=== PATIENT | male | born 1955 | race Caucasian/White ===

== ENCOUNTER 2024-12-24 11:56 | Inpatient (IN) ==
[2024-12-24] MEDS: 0.9 % SODIUM CHLORIDE 1,000 ML IV ONE ×3 (12:02→13:57)
[2024-12-24 12:38] LABS: Basophils # (Auto) 0.03 K/mcL (0.00-0.30); Basophils % (Auto) 0.1 % (0.0-2.0); Eosinophils # (Auto) 0 K/mcL (0.00-0.70); Eosinophils % (Auto) 0 % (0.0-7.0); Hematocrit 47.2 % (40.1-51.0); Hemoglobin 16.5 g/dL (13.7-17.5); Lymphocytes # (Auto) 0.83 K/mcL (1.50-4.80); Mean Cell Volume 89.9 fL (80.0-100.0); Mean Platelet Volume 11.4 fL (8.8-12.5); Monocytes # (Auto) 1.88 K/mcL (0.10-0.90); Monocytes % (Auto) 6.7 % (1.0-12.0); Neutrophils % (Auto) 89.8 % (38.0-78.0); Platelet Count 313 K/mcL (140-440); RBC 5.25 M/mcL (4.63-6.08); WBC 27.9 K/mcL (4.5-11.0)
[2024-12-24 12:52] LABS: Alcohol, Blood < 10.1 mg/dL; Alcohol,Blood < 0.010 gm/dL (<0.010)
[2024-12-24 12:58] LABS: Creatine Kinase 1127 U/L (24-195)
[2024-12-24 12:59] LABS: Thyroid Stimulating Hormone 1.55 uIU/mL (0.27-5.01)
[2024-12-24 13:16] LABS: Amphetamine Screen,Urine None detected; Barbiturate Screen,Urine None detected; Benzodiazepines Screen,Urine None detected; Cannabinoid Screen,Urine None detected; Cocaine Screen,Urine None detected; Fentanyl, Urine Screen None Detected; Opiate Screen,Urine None detected; Oxycodone, Urine Screen None detected; Phencyclidine Screen,Urine None detected
[2024-12-24 13:23] LABS: Free T4 (Free Thyroxine) 1.21 ng/dL (0.93-1.70)
[2024-12-24 13:31] LABS: ALT/SGPT 61 U/L (<40); AST/SGOT 72 U/L (<40); Albumin 4.2 gm/dL (3.2-5.2); Alkaline Phosphatase 104 U/L (39-117); Bilirubin,Total 1.3 mg/dL (0.1-1.0); Blood Urea Nitrogen 144 mg/dL (8-23); Calcium 9.4 mg/dL (8.6-10.4); Carbon Dioxide 21 mmol/L (22-30); Chloride 86 mmol/L (96-108); Globulin 4.4 gm/dL (2.2-3.7); Glomerular Filtration Rate 8; Glucose 146 mg/dL (70-105); Potassium 3.1 mmol/L (3.3-5.1); Sodium 133 mmol/L (133-145)
[2024-12-24 13:49] LABS: Appearance,Urine CLOUDY (Clear); Bacteria,Urine MANY /hpf (0); Bilirubin,Urine Negative (Negative); Color,Urine Brown; Glucose,Urine (UA) Negative (Negative); Ketones,Urine Negative (Negative); Leukocyte Esterase,Urine 500 /uL (Negative); Nitrate,Urine Negative (Negative); Protein,Urine 100 mg/dL (Negative); Urine Blood >=1.0 mg/dL (Negative); Urine RBC 124 /hpf (0-3); Urine Squamous Epithelial Cell 0 /hpf (0-4); Urine WBC > 182 /hpf (0-4); Urobilinogen,Urine Negative
[2024-12-24] MEDS: cefTRIAXone 1 GM VIAL IV ONE (14:04)
[2024-12-24] MEDS: AZITHROMYCIN 500 MG in 0.9 % SODIUM CHLORIDE 250 ML IV ONE (15:35)
[2024-12-24] MEDS: HYDROmorphone 0.5 MG/0.5 ML SYRINGE IV PRN (15:44)
[2024-12-24 15:55] LABS: Blood Urea Nitrogen 143 mg/dL (8-23); Calcium 8.2 mg/dL (8.6-10.4); Carbon Dioxide 21 mmol/L (22-30); Chloride 95 mmol/L (96-108); Glomerular Filtration Rate 9; Glucose 134 mg/dL (70-105); Sodium 136 mmol/L (133-145)
[2024-12-24] MEDS: LEVOFLOXACIN 750 MG/150 ML BAG IV ONE ×2 (16:46→16:58)
[2024-12-24] MEDS: LIDOCAINE 4% TOP PATCH TOPICAL ONE (16:47)
[2024-12-24] MEDS ORDERED: IPRATROPIUM/ALBUTEROL 3 ML AMPUL.NEB NEB PRN (18:05)
[2024-12-24] MEDS: POTASSIUM CHLORIDE 20 MEQ TABLET PO ONE ×2 (18:47→21:22)
[2024-12-24] MEDS: LACTATED RINGERS 1,000 ML IV SCH (18:48)
[2024-12-24 20:42] LABS: Blood Urea Nitrogen 134 mg/dL (8-23); Calcium 8.3 mg/dL (8.6-10.4); Carbon Dioxide 20 mmol/L (22-30); Chloride 96 mmol/L (96-108); Glomerular Filtration Rate 11; Glucose 152 mg/dL (70-105); Sodium 136 mmol/L (133-145)
[2024-12-24] MEDS: HEPARIN 5,000 UNIT/ML VIAL SQ SCH (22:12)
[2024-12-24] MEDS: POTASSIUM CHLORIDE 40 MEQ in DEXTROSE 5% IN WATER 500 ML IV ONE (22:12)
[2024-12-24] MEDS: 0.9 % SODIUM CHLORIDE 10 ML SYRINGE IV SCH (22:13)
[2024-12-24] MEDS: POTASSIUM CHLORIDE 20 MEQ/10 ML VIAL IV ONE (22:13)
[2024-12-25] MEDS: AMITRIPTYLINE 25 MG TABLET PO SCH (01:47)
[2024-12-25] MEDS: LACTULOSE 20 GM/30 ML ORAL.SOL PO PRN (02:25)
[2024-12-25 06:36] LABS: Phosphorous 4.8 mg/dL (2.5-4.5)
[2024-12-25 06:55] LABS: ALT/SGPT 44 U/L (<40); AST/SGOT 43 U/L (<40); Albumin/Globulin Ratio 0.9 (1.0-2.3); Alkaline Phosphatase 86 U/L (39-117); Bilirubin,Total 0.7 mg/dL (0.1-1.0); Blood Urea Nitrogen 121 mg/dL (8-23); Calcium 8.3 mg/dL (8.6-10.4); Carbon Dioxide 19 mmol/L (22-30); Chloride 98 mmol/L (96-108); Globulin 3.3 gm/dL (2.2-3.7); Glomerular Filtration Rate 12; Glucose 121 mg/dL (70-105); Potassium 2.9 mmol/L (3.3-5.1); Sodium 137 mmol/L (133-145)
[2024-12-25 07:17] LABS: Basophils # (Auto) 0 K/mcL (0.00-0.30); Basophils % (Auto) 0 % (0.0-2.0); Eosinophils # (Auto) 0 K/mcL (0.00-0.70); Eosinophils % (Auto) 0 % (0.0-7.0); Hematocrit 37.6 % (40.1-51.0); Hemoglobin 13.1 g/dL (13.7-17.5); Lymphocytes # (Auto) 0.99 K/mcL (1.50-4.80); Lymphocytes % (Auto) 4.8 % (15.5-49.0); Mean Corpuscular HGB Conc 34.8 g/dL (31.0-36.0); Mean Platelet Volume 11.8 fL (8.8-12.5); Monocytes # (Auto) 1.36 K/mcL (0.10-0.90); Monocytes % (Auto) 6.6 % (1.0-12.0); Neutrophils % (Auto) 88.1 % (38.0-78.0); Platelet Count 180 K/mcL (140-440); RBC 4.18 M/mcL (4.63-6.08); WBC 20.5 K/mcL (4.5-11.0)
[2024-12-25] MEDS: LACTATED RINGERS 1,000 ML IV SCH (07:27)
[2024-12-25] MEDS: POTASSIUM CHLORIDE 20 MEQ TABLET PO ONE ×2 (07:58→17:25)
[2024-12-25] MEDS: POTASSIUM CHLORIDE 40 MEQ in DEXTROSE 5% IN WATER 500 ML IV ONE (08:36)
[2024-12-25] MEDS: POTASSIUM CHLORIDE 10 MEQ/100 ML BAG IV SCH (08:44)
[2024-12-25 14:39] LABS: Blood Urea Nitrogen 111 mg/dL (8-23); Calcium 8.6 mg/dL (8.6-10.4); Carbon Dioxide 19 mmol/L (22-30); Chloride 103 mmol/L (96-108); Glomerular Filtration Rate 14; Glucose 125 mg/dL (70-105); Potassium 3.3 mmol/L (3.3-5.1); Sodium 139 mmol/L (133-145)
[2024-12-25] MEDS: ACETAMINOPHEN 325 MG TABLET PO PRN (21:09)
[2024-12-26 06:14] LABS: Basophils # (Auto) 0 K/mcL (0.00-0.30); Basophils % (Auto) 0 % (0.0-2.0); Eosinophils # (Auto) 0.03 K/mcL (0.00-0.70); Eosinophils % (Auto) 0.2 % (0.0-7.0); Hematocrit 36.3 % (40.1-51.0); Hemoglobin 12.6 g/dL (13.7-17.5); Lymphocytes # (Auto) 0.72 K/mcL (1.50-4.80); Lymphocytes % (Auto) 5.8 % (15.5-49.0); Mean Cell Volume 90.5 fL (80.0-100.0); Mean Corpuscular HGB Conc 34.7 g/dL (31.0-36.0); Mean Platelet Volume 12.1 fL (8.8-12.5); Monocytes # (Auto) 0.82 K/mcL (0.10-0.90); Monocytes % (Auto) 6.6 % (1.0-12.0); Platelet Count 170 K/mcL (140-440); RBC 4.01 M/mcL (4.63-6.08); Red Cell Distribution Width 12.2 % (11.5-14.5); WBC 12.4 K/mcL (4.5-11.0)
[2024-12-26 06:42] LABS: ALT/SGPT 39 U/L (<40); AST/SGOT 32 U/L (<40); Albumin/Globulin Ratio 0.9 (1.0-2.3); Alkaline Phosphatase 93 U/L (39-117); Bilirubin,Total 0.6 mg/dL (0.1-1.0); Blood Urea Nitrogen 87 mg/dL (8-23); Calcium 8.9 mg/dL (8.6-10.4); Carbon Dioxide 21 mmol/L (22-30); Chloride 106 mmol/L (96-108); Globulin 3.2 gm/dL (2.2-3.7); Glomerular Filtration Rate 19; Glucose 156 mg/dL (70-105); Potassium 3.2 mmol/L (3.3-5.1); Sodium 142 mmol/L (133-145)
[2024-12-26] MEDS: 0.45 % SODIUM CHLORIDE 1,000 ML IV SCH (07:25)
[2024-12-26] MEDS: POTASSIUM CHLORIDE 20 MEQ TABLET PO ONE (07:39)
[2024-12-26] MEDS: POTASSIUM CHLORIDE 20 MEQ in DEXTROSE 5% IN WATER 250 ML IV ONE (08:00)
[2024-12-26] MEDS ORDERED: LEVOFLOXACIN 750 MG/150 ML BAG IV SCH (09:00)
[2024-12-26] MEDS ORDERED: LEVOFLOXACIN 500 MG/100 ML BAG IV SCH (09:00)
[2024-12-26] MEDS: POTASSIUM CHLORIDE 10 MEQ/100 ML BAG IV SCH (09:51)
[2024-12-26] MEDS: LEVOFLOXACIN 750 MG/150 ML BAG IV SCH (10:54)
[2024-12-26] MEDS: ONDANSETRON 4 MG/2 ML VIAL IV PRN (18:38)
[2024-12-26] MEDS: PROCHLORPERAZINE 10 MG/2 ML VIAL IV PRN (19:11)
[2024-12-26 21:01] LABS: Blood Urea Nitrogen 68 mg/dL (8-23); Calcium 8.7 mg/dL (8.6-10.4); Carbon Dioxide 22 mmol/L (22-30); Chloride 104 mmol/L (96-108); Glomerular Filtration Rate 23; Glucose 141 mg/dL (70-105); Potassium 3.5 mmol/L (3.3-5.1); Sodium 139 mmol/L (133-145)
[2024-12-27 05:46] LABS: Basophils # (Auto) 0 K/mcL (0.00-0.30); Basophils % (Auto) 0 % (0.0-2.0); Eosinophils # (Auto) 0.05 K/mcL (0.00-0.70); Eosinophils % (Auto) 0.5 % (0.0-7.0); Hematocrit 37.2 % (40.1-51.0); Hemoglobin 12.5 g/dL (13.7-17.5); Lymphocytes # (Auto) 0.84 K/mcL (1.50-4.80); Lymphocytes % (Auto) 8.6 % (15.5-49.0); Mean Cell Volume 91.6 fL (80.0-100.0); Mean Corpuscular HGB Conc 33.6 g/dL (31.0-36.0); Mean Platelet Volume 11.7 fL (8.8-12.5); Monocytes # (Auto) 0.92 K/mcL (0.10-0.90); Monocytes % (Auto) 9.5 % (1.0-12.0); Neutrophils % (Auto) 80.9 % (38.0-78.0); Platelet Count 170 K/mcL (140-440); RBC 4.06 M/mcL (4.63-6.08); Red Cell Distribution Width 12.3 % (11.5-14.5); WBC 9.7 K/mcL (4.5-11.0)
[2024-12-27 06:21] LABS: ALT/SGPT 39 U/L (<40); AST/SGOT 31 U/L (<40); Albumin/Globulin Ratio 0.9 (1.0-2.3); Alkaline Phosphatase 97 U/L (39-117); Bilirubin,Total 0.6 mg/dL (0.1-1.0); Blood Urea Nitrogen 61 mg/dL (8-23); Calcium 8.6 mg/dL (8.6-10.4); Carbon Dioxide 21 mmol/L (22-30); Chloride 103 mmol/L (96-108); Globulin 3.5 gm/dL (2.2-3.7); Glomerular Filtration Rate 23; Glucose 119 mg/dL (70-105); Sodium 139 mmol/L (133-145)
[2024-12-27] MEDS: POTASSIUM CHLORIDE 20 MEQ TABLET PO ONE (07:55)
[2024-12-27] MEDS: POTASSIUM CHLORIDE 10 MEQ/100 ML BAG IV SCH (07:58)
[2024-12-27] MEDS: POTASSIUM CHLORIDE 20 MEQ in DEXTROSE 5% IN WATER 250 ML IV ONE (08:11)
[2024-12-28 06:48] LABS: Basophils # (Auto) 0.02 K/mcL (0.00-0.30); Basophils % (Auto) 0.2 % (0.0-2.0); Eosinophils # (Auto) 0.13 K/mcL (0.00-0.70); Eosinophils % (Auto) 1.4 % (0.0-7.0); Hematocrit 38.5 % (40.1-51.0); Hemoglobin 13.1 g/dL (13.7-17.5); Lymphocytes # (Auto) 1.14 K/mcL (1.50-4.80); Lymphocytes % (Auto) 12.3 % (15.5-49.0); Mean Cell Volume 91.7 fL (80.0-100.0); Mean Platelet Volume 11.5 fL (8.8-12.5); Monocytes # (Auto) 1.18 K/mcL (0.10-0.90); Monocytes % (Auto) 12.7 % (1.0-12.0); Neutrophils % (Auto) 72.2 % (38.0-78.0); Platelet Count 191 K/mcL (140-440); Red Cell Distribution Width 12.3 % (11.5-14.5); WBC 9.3 K/mcL (4.5-11.0)
[2024-12-28 07:16] LABS: ALT/SGPT 41 U/L (<40); AST/SGOT 36 U/L (<40); Albumin/Globulin Ratio 0.8 (1.0-2.3); Alkaline Phosphatase 98 U/L (39-117); Bilirubin,Total 0.5 mg/dL (0.1-1.0); Blood Urea Nitrogen 47 mg/dL (8-23); Calcium 8.4 mg/dL (8.6-10.4); Carbon Dioxide 22 mmol/L (22-30); Chloride 102 mmol/L (96-108); Globulin 3.6 gm/dL (2.2-3.7); Glomerular Filtration Rate 27; Glucose 119 mg/dL (70-105); Potassium 3.1 mmol/L (3.3-5.1); Sodium 139 mmol/L (133-145)
[2024-12-28] MEDS ORDERED: LEVOFLOXACIN 500 MG/100 ML BAG IV SCH (07:45)
[2024-12-28] MEDS: POTASSIUM CHLORIDE 20 MEQ in DEXTROSE 5% IN WATER 250 ML IV ONE (08:18)
[2024-12-28] MEDS: POTASSIUM CHLORIDE 10 MEQ/100 ML BAG IV SCH (08:24)
[2024-12-28] MEDS: POTASSIUM CHLORIDE 20 MEQ TABLET PO ONE (08:24)
[2024-12-28] MEDS: LEVOFLOXACIN 750 MG/150 ML BAG IV SCH (08:24)
[2024-12-28] MEDS: MAGNESIUM SULFATE 4 GM/100 ML BAG IV SCH (11:26)
[2024-12-28 17:42] LABS: Blood Urea Nitrogen 45 mg/dL (8-23); Calcium 8.6 mg/dL (8.6-10.4); Carbon Dioxide 23 mmol/L (22-30); Chloride 101 mmol/L (96-108); Glomerular Filtration Rate 27; Glucose 119 mg/dL (70-105); Potassium 3.6 mmol/L (3.3-5.1); Sodium 139 mmol/L (133-145)
[2024-12-28] MEDS: SENNOSIDES 1 TABLET PO PRN (20:32)
[2024-12-29 06:50] LABS: Basophils # (Auto) 0.03 K/mcL (0.00-0.30); Basophils % (Auto) 0.3 % (0.0-2.0); Eosinophils # (Auto) 0.19 K/mcL (0.00-0.70); Eosinophils % (Auto) 1.9 % (0.0-7.0); Hematocrit 40.4 % (40.1-51.0); Hemoglobin 13.9 g/dL (13.7-17.5); Lymphocytes # (Auto) 1.75 K/mcL (1.50-4.80); Lymphocytes % (Auto) 17.3 % (15.5-49.0); Mean Cell Volume 91.4 fL (80.0-100.0); Mean Corpuscular HGB Conc 34.4 g/dL (31.0-36.0); Monocytes # (Auto) 1.08 K/mcL (0.10-0.90); Monocytes % (Auto) 10.7 % (1.0-12.0); Neutrophils % (Auto) 68.6 % (38.0-78.0); Platelet Count 203 K/mcL (140-440); RBC 4.42 M/mcL (4.63-6.08); Red Cell Distribution Width 12.1 % (11.5-14.5); WBC 10.1 K/mcL (4.5-11.0)
[2024-12-29 07:04] LABS: ALT/SGPT 51 U/L (<40); AST/SGOT 44 U/L (<40); Albumin 3.3 gm/dL (3.2-5.2); Alkaline Phosphatase 104 U/L (39-117); Bilirubin,Total 0.5 mg/dL (0.1-1.0); Blood Urea Nitrogen 45 mg/dL (8-23); Calcium 8.8 mg/dL (8.6-10.4); Carbon Dioxide 27 mmol/L (22-30); Chloride 100 mmol/L (96-108); Globulin 3.4 gm/dL (2.2-3.7); Glomerular Filtration Rate 25; Glucose 107 mg/dL (70-105); Potassium 3.3 mmol/L (3.3-5.1); Sodium 140 mmol/L (133-145)
[2024-12-29] MEDS: LACTATED RINGERS 1,000 ML IV SCH ×2 (10:57→11:00)
[2024-12-29] MEDS: LIDOCAINE 4% TOP PATCH TOPICAL SCH (16:28)
[2024-12-29 18:27] LABS: Blood Urea Nitrogen 43 mg/dL (8-23); Calcium 8.7 mg/dL (8.6-10.4); Carbon Dioxide 25 mmol/L (22-30); Chloride 100 mmol/L (96-108); Glomerular Filtration Rate 30; Glucose 133 mg/dL (70-105); Potassium 3.3 mmol/L (3.3-5.1); Sodium 139 mmol/L (133-145)
[2024-12-29] MEDS: POTASSIUM CHLORIDE 20 MEQ TABLET PO ONE (19:34)
[2024-12-30 06:36] LABS: ALT/SGPT 50 U/L (<40); AST/SGOT 42 U/L (<40); Albumin 3.2 gm/dL (3.2-5.2); Albumin/Globulin Ratio 0.9 (1.0-2.3); Alkaline Phosphatase 104 U/L (39-117); Basophils # (Auto) 0.05 K/mcL (0.00-0.30); Basophils % (Auto) 0.5 % (0.0-2.0); Bilirubin,Direct 0.3 mg/dL (<0.3); Bilirubin,Total 0.5 mg/dL (0.1-1.0); Blood Urea Nitrogen 42 mg/dL (8-23); Calcium 8.8 mg/dL (8.6-10.4); Carbon Dioxide 28 mmol/L (22-30); Chloride 102 mmol/L (96-108); Eosinophils # (Auto) 0.18 K/mcL (0.00-0.70); Eosinophils % (Auto) 1.7 % (0.0-7.0); Globulin 3.5 gm/dL (2.2-3.7); Glomerular Filtration Rate 28; Glucose 103 mg/dL (70-105); Hematocrit 38.7 % (40.1-51.0); Hemoglobin 13.1 g/dL (13.7-17.5); Lactate Dehydrogenase 256 U/L (135-225); Lymphocytes # (Auto) 2.44 K/mcL (1.50-4.80); Lymphocytes % (Auto) 23.3 % (15.5-49.0); Mean Cell Volume 90.8 fL (80.0-100.0); Mean Corpuscular HGB Conc 33.9 g/dL (31.0-36.0); Mean Platelet Volume 10.9 fL (8.8-12.5); Monocytes # (Auto) 0.87 K/mcL (0.10-0.90); Monocytes % (Auto) 8.3 % (1.0-12.0); Neutrophils % (Auto) 65.1 % (38.0-78.0); Platelet Count 212 K/mcL (140-440); Potassium 3.4 mmol/L (3.3-5.1); RBC 4.26 M/mcL (4.63-6.08); Red Cell Distribution Width 12.1 % (11.5-14.5); Sodium 141 mmol/L (133-145); Triglycerides 204 mg/dL (<150); Uric Acid 6.2 mg/dL (2.5-8.0); WBC 10.5 K/mcL (4.5-11.0)
[2024-12-30] MEDS: LEVOFLOXACIN 750 MG TABLET PO SCH (08:56)
[2024-12-30] MEDS: POTASSIUM CHLORIDE 20 MEQ TABLET PO ONE (16:13)
[2024-12-30 17:58] LABS: Potassium,Urine Random 14.4 mmol/L
[2024-12-31 06:31] LABS: Basophils # (Auto) 0.06 K/mcL (0.00-0.30); Basophils % (Auto) 0.5 % (0.0-2.0); Eosinophils # (Auto) 0.18 K/mcL (0.00-0.70); Eosinophils % (Auto) 1.5 % (0.0-7.0); Hematocrit 43.6 % (40.1-51.0); Hemoglobin 14.7 g/dL (13.7-17.5); Lymphocytes % (Auto) 25.5 % (15.5-49.0); Mean Corpuscular HGB Conc 33.7 g/dL (31.0-36.0); Mean Platelet Volume 10.6 fL (8.8-12.5); Monocytes # (Auto) 0.66 K/mcL (0.10-0.90); Monocytes % (Auto) 5.6 % (1.0-12.0); Neutrophils % (Auto) 65.5 % (38.0-78.0); Platelet Count 237 K/mcL (140-440); RBC 4.74 M/mcL (4.63-6.08); Red Cell Distribution Width 12.2 % (11.5-14.5); WBC 11.8 K/mcL (4.5-11.0)
[2024-12-31 06:35] LABS: ALT/SGPT 54 U/L (<40); AST/SGOT 47 U/L (<40); Albumin 3.6 gm/dL (3.2-5.2); Albumin/Globulin Ratio 0.9 (1.0-2.3); Alkaline Phosphatase 116 U/L (39-117); Bilirubin,Direct 0.2 mg/dL (<0.3); Bilirubin,Total 0.5 mg/dL (0.1-1.0); Blood Urea Nitrogen 39 mg/dL (8-23); Calcium 9.1 mg/dL (8.6-10.4); Carbon Dioxide 28 mmol/L (22-30); Chloride 101 mmol/L (96-108); Globulin 3.9 gm/dL (2.2-3.7); Glomerular Filtration Rate 30; Glucose 117 mg/dL (70-105); Lactate Dehydrogenase 209 U/L (135-225); Phosphorous 3.1 mg/dL (2.5-4.5); Potassium 3.8 mmol/L (3.3-5.1); Sodium 141 mmol/L (133-145); Triglycerides 211 mg/dL (<150); Uric Acid 6.3 mg/dL (2.5-8.0)
[2025-01-01 10:23] LABS: ALT/SGPT 71 U/L (<40); AST/SGOT 61 U/L (<40); Albumin 3.6 gm/dL (3.2-5.2); Albumin/Globulin Ratio 0.9 (1.0-2.3); Alkaline Phosphatase 119 U/L (39-117); Bilirubin,Direct 0.3 mg/dL (<0.3); Bilirubin,Total 0.7 mg/dL (0.1-1.0); Blood Urea Nitrogen 41 mg/dL (8-23); Calcium 9.1 mg/dL (8.6-10.4); Carbon Dioxide 26 mmol/L (22-30); Chloride 97 mmol/L (96-108); Globulin 3.8 gm/dL (2.2-3.7); Glomerular Filtration Rate 30; Glucose 183 mg/dL (70-105); Lactate Dehydrogenase 184 U/L (135-225); Phosphorous 3.1 mg/dL (2.5-4.5); Potassium 3.7 mmol/L (3.3-5.1); Sodium 137 mmol/L (133-145); Triglycerides 169 mg/dL (<150); Uric Acid 7.6 mg/dL (2.5-8.0)
[2025-01-01 11:07] LABS: Basophils # (Auto) 0.07 K/mcL (0.00-0.30); Basophils % (Auto) 0.6 % (0.0-2.0); Eosinophils # (Auto) 0.09 K/mcL (0.00-0.70); Eosinophils % (Auto) 0.8 % (0.0-7.0); Hematocrit 44.1 % (40.1-51.0); Hemoglobin 14.9 g/dL (13.7-17.5); Lymphocytes # (Auto) 2.71 K/mcL (1.50-4.80); Lymphocytes % (Auto) 24.9 % (15.5-49.0); Mean Cell Volume 91.7 fL (80.0-100.0); Mean Corpuscular HGB Conc 33.8 g/dL (31.0-36.0); Mean Platelet Volume 10.8 fL (8.8-12.5); Monocytes # (Auto) 0.44 K/mcL (0.10-0.90); Neutrophils % (Auto) 68.8 % (38.0-78.0); Platelet Count 284 K/mcL (140-440); RBC 4.81 M/mcL (4.63-6.08); Red Cell Distribution Width 12.2 % (11.5-14.5); WBC 10.9 K/mcL (4.5-11.0)
[2025-01-01] MEDS: MAGNESIUM SULFATE 2 GM/50 ML BAG IV SCH (11:29)
[2025-01-01] MEDS: 0.9 % SODIUM CHLORIDE 1,000 ML IV ONE (13:17)
[2025-01-01] MEDS: 0.9 % SODIUM CHLORIDE 500 ML IV ONE (17:49)
[2025-01-01] MEDS: TAMSULOSIN 0.4 MG CAPSULE PO SCH (21:24)
[2025-01-01] MEDS: AMITRIPTYLINE 25 MG TABLET PO SCH (21:25)
[2025-01-02 07:16] LABS: ALT/SGPT 62 U/L (<40); AST/SGOT 55 U/L (<40); Albumin 3.3 gm/dL (3.2-5.2); Albumin/Globulin Ratio 0.8 (1.0-2.3); Alkaline Phosphatase 115 U/L (39-117); Bilirubin,Direct < 0.2 mg/dL (0-0.3); Bilirubin,Total 0.7 mg/dL (0.1-1.0); Blood Urea Nitrogen 41 mg/dL (8-23); Calcium 9.2 mg/dL (8.6-10.4); Carbon Dioxide 19 mmol/L (22-30); Chloride 102 mmol/L (96-108); Globulin 4.1 gm/dL (2.2-3.7); Glomerular Filtration Rate 31; Glucose 104 mg/dL (70-105); Lactate Dehydrogenase 299 U/L (135-225); Phosphorous 3.4 mg/dL (2.5-4.5); Potassium 4.1 mmol/L (3.3-5.1); Sodium 138 mmol/L (133-145); Triglycerides 181 mg/dL (<150); Uric Acid 7.6 mg/dL (2.5-8.0)
[2025-01-02] MEDS: SODIUM BICARBONATE 650 MG TABLET PO SCH (08:36)
[2025-01-02 16:02] LABS: ALT/SGPT 65 U/L (<40); AST/SGOT 51 U/L (<40); Albumin 3.7 gm/dL (3.2-5.2); Albumin/Globulin Ratio 0.9 (1.0-2.3); Alkaline Phosphatase 123 U/L (39-117); Bilirubin,Direct 0.2 mg/dL (<0.3); Bilirubin,Total 0.5 mg/dL (0.1-1.0); Blood Urea Nitrogen 43 mg/dL (8-23); Calcium 9.3 mg/dL (8.6-10.4); Carbon Dioxide 21 mmol/L (22-30); Chloride 99 mmol/L (96-108); Glomerular Filtration Rate 30; Glucose 137 mg/dL (70-105); Lactate Dehydrogenase 174 U/L (135-225); Phosphorous 2.8 mg/dL (2.5-4.5); Potassium 3.8 mmol/L (3.3-5.1); Sodium 138 mmol/L (133-145); Triglycerides 242 mg/dL (<150); Uric Acid 7.9 mg/dL (2.5-8.0)
[2025-01-02 18:52] LABS: Prolactin 14.8 ng/mL (4.0-15.2)
[2025-01-02] MEDS: levETIRAcetam 1,000 MG in 0.9 % SODIUM CHLORIDE 100 ML IV SCH (21:26)
[2025-01-02] MEDS: LORazepam 2 MG/ML VIAL IV PRN (21:43)
[2025-01-03] MEDS: levETIRAcetam 500 MG TABLET PO SCH (09:34)
[2025-01-03 15:55] VITALS: TEMP 97.8; O2SAT 99
== END 2025-01-03 16:25 | disposition home or self-care (01) | DRG 871 ==
LOC: ED 11:56 → ICU 18:00 → MEDSUR 12-28 22:36 → ICU 01-02 17:51
PROVIDERS: ADMIT Student in an Organized Health Care Education/Training Program; ATTEND Internal Medicine

== ENCOUNTER 2025-03-14 13:32 | Inpatient (IN) ==
[2025-03-14] MEDS: 0.9 % SODIUM CHLORIDE 1,000 ML IV ONE ×2 (14:08→15:51)
[2025-03-14 14:29] LABS: Basophils # (Auto) 0.01 K/mcL (0.00-0.30); Basophils % (Auto) 0.1 % (0.0-2.0); Eosinophils # (Auto) 0 K/mcL (0.00-0.70); Eosinophils % (Auto) 0 % (0.0-7.0); Hematocrit 35.3 % (40.1-51.0); Hemoglobin 11.3 g/dL (13.7-17.5); Lymphocytes # (Auto) 1.71 K/mcL (1.50-4.80); Lymphocytes % (Auto) 9.5 % (15.5-49.0); Mean Cell Volume 95.7 fL (80.0-100.0); Mean Platelet Volume 11.3 fL (8.8-12.5); Monocytes # (Auto) 0.87 K/mcL (0.10-0.90); Monocytes % (Auto) 4.8 % (1.0-12.0); Neutrophils % (Auto) 84.9 % (38.0-78.0); Platelet Count 555 K/mcL (140-440); RBC 3.69 M/mcL (4.63-6.08); Red Cell Distribution Width 14.7 % (11.5-14.5)
[2025-03-14 14:50] LABS: Alcohol, Blood < 10.1 mg/dL; Alcohol,Blood < 0.010 gm/dL (<0.010)
[2025-03-14 14:53] LABS: Creatine Kinase 1533 U/L (24-195); Thyroid Stimulating Hormone 0.95 uIU/mL (0.27-5.01)
[2025-03-14 15:12] LABS: ALT/SGPT 51 U/L (<40); AST/SGOT 100 U/L (<40); Albumin 3.4 gm/dL (3.2-5.2); Albumin/Globulin Ratio 0.7 (1.0-2.3); Alkaline Phosphatase 79 U/L (39-117); Bilirubin,Total 0.5 mg/dL (0.1-1.0); Blood Urea Nitrogen 131 mg/dL (8-23); Calcium 9.5 mg/dL (8.6-10.4); Carbon Dioxide 18 mmol/L (22-30); Chloride 110 mmol/L (96-108); Globulin 4.6 gm/dL (2.2-3.7); Glomerular Filtration Rate 11; Glucose 177 mg/dL (70-105); Potassium 3.6 mmol/L (3.3-5.1); Sodium 152 mmol/L (133-145)
[2025-03-14 16:27] LABS: Acetaminophen < 5.0 ug/mL; Salicylate < 0.5 mg/dL
[2025-03-14] MEDS: PROPOFOL 200 MG/20 ML VIAL IV ONE (16:59)
[2025-03-14] MEDS: DEXTROSE 5% IN WATER 1,000 ML IV SCH (17:34)
[2025-03-14 19:07] LABS: Appearance,Urine CLEAR (Clear); Bilirubin,Urine Negative (Negative); Color,Urine YELLOW; Glucose,Urine (UA) Negative (Negative); Ketones,Urine Negative (Negative); Leukocyte Esterase,Urine Negative /uL (Negative); Mucus,Urine FEW /hpf; Nitrate,Urine Negative (Negative); Protein,Urine Negative (Negative); Specific Gravity,Urine 1.011 (1.000-1.035); Urine RBC 36 /hpf (0-3); Urine Squamous Epithelial Cell 0 /hpf (0-4); Urine WBC 3 /hpf (0-4); Urobilinogen,Urine Negative
[2025-03-14 19:16] LABS: Amphetamine Screen,Urine None detected; Barbiturate Screen,Urine None detected; Benzodiazepines Screen,Urine None detected; Cannabinoid Screen,Urine None detected; Cocaine Screen,Urine None detected; Fentanyl, Urine Screen None Detected; Opiate Screen,Urine None detected; Oxycodone, Urine Screen None detected; Phencyclidine Screen,Urine None detected
[2025-03-14] MEDS ORDERED: ONDANSETRON 4 MG/2 ML VIAL IV PRN (19:32)
[2025-03-14] MEDS ORDERED: LACTULOSE 20 GM/30 ML ORAL.SOL PO PRN (19:32)
[2025-03-14] MEDS: cefTRIAXone 1 GM VIAL IV ONE (20:24)
[2025-03-14] MEDS: DEXTROSE 5% IN WATER 500 ML IV SCH (20:24)
[2025-03-14] MEDS: 0.9 % SODIUM CHLORIDE 10 ML SYRINGE IV SCH (20:25)
[2025-03-14 21:12] LABS: Albumin 3.5 gm/dL (3.2-5.2); Blood Urea Nitrogen 119 mg/dL (8-23); Calcium 9.3 mg/dL (8.6-10.4); Carbon Dioxide 20 mmol/L (22-30); Chloride 115 mmol/L (96-108); Glomerular Filtration Rate 13; Glucose 112 mg/dL (70-105); Phosphorous 5.1 mg/dL (2.5-4.5); Potassium 2.9 mmol/L (3.3-5.1); Sodium 154 mmol/L (133-145)
[2025-03-14] MEDS: SODIUM BICARBONATE 50 MEQ/50 ML VIAL ONE (21:18)
[2025-03-14] MEDS: hydrOXYzine 25 MG TABLET PO PRN (21:18)
[2025-03-14] MEDS: HALOPERIDOL LACTATE 5 MG/ML VIAL IV PRN (22:08)
[2025-03-14] MEDS: POTASSIUM CHLORIDE 20 MEQ TABLET PO ONE (22:08)
[2025-03-14] MEDS: DEXTROSE 5% IV SCH (22:43)
[2025-03-14] MEDS: WATER IV SCH (22:43)
[2025-03-14] MEDS: SODIUM BICARBONATE IV SCH (22:43)
[2025-03-15] MEDS: ACETAMINOPHEN 325 MG TABLET PO PRN (00:59)
[2025-03-15] MEDS: HEPARIN 5,000 UNIT/ML VIAL SQ SCH (03:34)
[2025-03-15] MEDS: SODIUM BICARBONATE 50 MEQ/50 ML VIAL ONE (04:22)
[2025-03-15 07:58] LABS: Basophils # (Auto) 0.01 K/mcL (0.00-0.30); Basophils % (Auto) 0.1 % (0.0-2.0); Eosinophils # (Auto) 0.12 K/mcL (0.00-0.70); Eosinophils % (Auto) 0.8 % (0.0-7.0); Hematocrit 31.8 % (40.1-51.0); Lymphocytes # (Auto) 2.84 K/mcL (1.50-4.80); Mean Cell Volume 96.7 fL (80.0-100.0); Mean Corpuscular HGB Conc 31.4 g/dL (31.0-36.0); Mean Platelet Volume 10.7 fL (8.8-12.5); Monocytes # (Auto) 0.75 K/mcL (0.10-0.90); Neutrophils % (Auto) 74.5 % (38.0-78.0); Platelet Count 456 K/mcL (140-440); RBC 3.29 M/mcL (4.63-6.08); Red Cell Distribution Width 14.4 % (11.5-14.5)
[2025-03-15 08:43] LABS: Creatine Kinase 591 U/L (24-195)
[2025-03-15 08:52] LABS: ALT/SGPT 41 U/L (<40); AST/SGOT 67 U/L (<40); Albumin 2.9 gm/dL (3.2-5.2); Albumin/Globulin Ratio 0.8 (1.0-2.3); Alkaline Phosphatase 67 U/L (39-117); Bilirubin,Direct < 0.2 mg/dL (0-0.3); Bilirubin,Total 0.3 mg/dL (0.1-1.0); Blood Urea Nitrogen 104 mg/dL (8-23); Calcium 8.9 mg/dL (8.6-10.4); Carbon Dioxide 23 mmol/L (22-30); Chloride 111 mmol/L (96-108); Globulin 3.7 gm/dL (2.2-3.7); Glomerular Filtration Rate 15; Glucose 160 mg/dL (70-105); Lactate Dehydrogenase 248 U/L (135-225); Phosphorous 4.4 mg/dL (2.5-4.5); Potassium 3.2 mmol/L (3.3-5.1); Sodium 148 mmol/L (133-145); Triglycerides 187 mg/dL (<150); Uric Acid 9.1 mg/dL (2.5-8.0)
[2025-03-15] MEDS: POTASSIUM CHLORIDE 20 MEQ TABLET PO SCH (09:09)
[2025-03-15] MEDS: TERAZOSIN 1 MG CAPSULE PO SCH (09:55)
[2025-03-15] MEDS: DEXTROSE 5% IN WATER 1,000 ML IV SCH (11:49)
[2025-03-15 18:46] LABS: Albumin 2.7 gm/dL (3.2-5.2); Blood Urea Nitrogen 95 mg/dL (8-23); Calcium 8.5 mg/dL (8.6-10.4); Carbon Dioxide 23 mmol/L (22-30); Chloride 107 mmol/L (96-108); Glomerular Filtration Rate 17; Glucose 169 mg/dL (70-105); Phosphorous 2.9 mg/dL (2.5-4.5); Potassium 3.7 mmol/L (3.3-5.1); Sodium 145 mmol/L (133-145)
[2025-03-16 06:53] LABS: Basophils # (Auto) 0.01 K/mcL (0.00-0.30); Basophils % (Auto) 0.1 % (0.0-2.0); Eosinophils # (Auto) 0.16 K/mcL (0.00-0.70); Eosinophils % (Auto) 1.5 % (0.0-7.0); Hematocrit 30.6 % (40.1-51.0); Hemoglobin 9.8 g/dL (13.7-17.5); Lymphocytes # (Auto) 2.39 K/mcL (1.50-4.80); Mean Cell Volume 95.9 fL (80.0-100.0); Mean Platelet Volume 10.7 fL (8.8-12.5); Monocytes # (Auto) 0.51 K/mcL (0.10-0.90); Monocytes % (Auto) 4.9 % (1.0-12.0); Neutrophils % (Auto) 69.4 % (38.0-78.0); Platelet Count 373 K/mcL (140-440); RBC 3.19 M/mcL (4.63-6.08); Red Cell Distribution Width 14.3 % (11.5-14.5); WBC 10.4 K/mcL (4.5-11.0)
[2025-03-16 06:56] LABS: Creatine Kinase 261 U/L (24-195)
[2025-03-16 06:57] LABS: ALT/SGPT 37 U/L (<40); AST/SGOT 45 U/L (<40); Albumin 2.9 gm/dL (3.2-5.2); Albumin/Globulin Ratio 0.8 (1.0-2.3); Alkaline Phosphatase 64 U/L (39-117); Bilirubin,Direct < 0.2 mg/dL (0-0.3); Bilirubin,Total 0.3 mg/dL (0.1-1.0); Blood Urea Nitrogen 81 mg/dL (8-23); Calcium 8.8 mg/dL (8.6-10.4); Carbon Dioxide 27 mmol/L (22-30); Chloride 109 mmol/L (96-108); Globulin 3.7 gm/dL (2.2-3.7); Glomerular Filtration Rate 20; Glucose 149 mg/dL (70-105); Lactate Dehydrogenase 204 U/L (135-225); Phosphorous 2.8 mg/dL (2.5-4.5); Potassium 3.5 mmol/L (3.3-5.1); Sodium 147 mmol/L (133-145); Triglycerides 155 mg/dL (<150); Uric Acid 8.4 mg/dL (2.5-8.0)
[2025-03-16] MEDS: ALLOPURINOL 100 MG TABLET PO SCH (10:56)
[2025-03-16] MEDS: OLANZapine 5 MG TABLET PO PRN (14:44)
[2025-03-16 17:00] LABS: Blood Urea Nitrogen 71 mg/dL (8-23); Calcium 8.5 mg/dL (8.6-10.4); Carbon Dioxide 25 mmol/L (22-30); Chloride 106 mmol/L (96-108); Glomerular Filtration Rate 23; Glucose 157 mg/dL (70-105); Phosphorous 2.4 mg/dL (2.5-4.5); Potassium 3.7 mmol/L (3.3-5.1); Sodium 143 mmol/L (133-145)
[2025-03-17 05:56] LABS: Basophils # (Auto) 0.01 K/mcL (0.00-0.30); Basophils % (Auto) 0.1 % (0.0-2.0); Eosinophils # (Auto) 0.33 K/mcL (0.00-0.70); Eosinophils % (Auto) 3.2 % (0.0-7.0); Hematocrit 33.8 % (40.1-51.0); Hemoglobin 10.5 g/dL (13.7-17.5); Lymphocytes # (Auto) 2.26 K/mcL (1.50-4.80); Lymphocytes % (Auto) 22.2 % (15.5-49.0); Mean Cell Volume 98.8 fL (80.0-100.0); Mean Corpuscular HGB Conc 31.1 g/dL (31.0-36.0); Mean Platelet Volume 10.6 fL (8.8-12.5); Monocytes # (Auto) 0.58 K/mcL (0.10-0.90); Monocytes % (Auto) 5.7 % (1.0-12.0); Neutrophils % (Auto) 67.3 % (38.0-78.0); Platelet Count 367 K/mcL (140-440); RBC 3.42 M/mcL (4.63-6.08); Red Cell Distribution Width 14.3 % (11.5-14.5); WBC 10.2 K/mcL (4.5-11.0)
[2025-03-17 06:14] LABS: ALT/SGPT 35 U/L (<40); AST/SGOT 36 U/L (<40); Albumin/Globulin Ratio 0.7 (1.0-2.3); Alkaline Phosphatase 75 U/L (39-117); Bilirubin,Direct < 0.2 mg/dL (0-0.3); Bilirubin,Total 0.4 mg/dL (0.1-1.0); Blood Urea Nitrogen 61 mg/dL (8-23); Calcium 9.1 mg/dL (8.6-10.4); Carbon Dioxide 30 mmol/L (22-30); Chloride 108 mmol/L (96-108); Creatine Kinase 171 U/L (24-195); Globulin 4.2 gm/dL (2.2-3.7); Glomerular Filtration Rate 27; Glucose 155 mg/dL (70-105); Lactate Dehydrogenase 255 U/L (135-225); Phosphorous 2.6 mg/dL (2.5-4.5); Potassium 3.8 mmol/L (3.3-5.1); Sodium 147 mmol/L (133-145); Triglycerides 161 mg/dL (<150); Uric Acid 7.1 mg/dL (2.5-8.0)
[2025-03-17] MEDS: TERAZOSIN 5 MG CAPSULE PO SCH (09:38)
[2025-03-17 09:54] LABS: Hemoglobin A1C 5.6 % Hgb (4.0-6.0)
[2025-03-17] MEDS: traMADol 50 MG TABLET PO PRN (13:44)
[2025-03-17] MEDS: SENNOSIDES 1 TABLET PO PRN (20:03)
[2025-03-18 06:11] LABS: ALT/SGPT 28 U/L (<40); AST/SGOT 28 U/L (<40); Albumin 2.8 gm/dL (3.2-5.2); Albumin/Globulin Ratio 0.8 (1.0-2.3); Alkaline Phosphatase 65 U/L (39-117); Bilirubin,Direct < 0.2 mg/dL (0-0.3); Bilirubin,Total 0.3 mg/dL (0.1-1.0); Blood Urea Nitrogen 47 mg/dL (8-23); Calcium 8.9 mg/dL (8.6-10.4); Carbon Dioxide 28 mmol/L (22-30); Chloride 104 mmol/L (96-108); Globulin 3.7 gm/dL (2.2-3.7); Glomerular Filtration Rate 30; Glucose 200 mg/dL (70-105); Lactate Dehydrogenase 206 U/L (135-225); Phosphorous 3.1 mg/dL (2.5-4.5); Potassium 3.6 mmol/L (3.3-5.1); Sodium 143 mmol/L (133-145); Triglycerides 148 mg/dL (<150); Uric Acid 6.1 mg/dL (2.5-8.0)
[2025-03-18] MEDS: CAPSAICIN 0.025% CREAM.TOP 60GM TOPICAL PRN (10:34)
[2025-03-18 12:15] VITALS: TEMP 98.4
[2025-03-18 14:35] VITALS: O2SAT 96
== END 2025-03-18 14:41 | DRG 683 ==
LOC: ED 13:32 → ICU 19:07
PROVIDERS: ADMIT Internal Medicine; ATTEND Internal Medicine

== ENCOUNTER 2025-05-31 12:18 | Inpatient (IN) ==
[2025-05-31] MEDS: 0.9 % SODIUM CHLORIDE 1,000 ML IV ONE (13:10)
[2025-05-31 13:21] LABS: Basophils # (Auto) 0.04 K/mcL (0.00-0.30); Basophils % (Auto) 0.3 % (0.0-2.0); Eosinophils # (Auto) 0.09 K/mcL (0.00-0.70); Eosinophils % (Auto) 0.6 % (0.0-7.0); Hematocrit 36.2 % (40.1-51.0); Hemoglobin 11.4 g/dL (13.7-17.5); Lymphocytes # (Auto) 1.80 K/mcL (1.50-4.80); Lymphocytes % (Auto) 13.0 % (15.5-49.0); Mean Corpuscular HGB Conc 31.5 g/dL (31.0-36.0); Monocytes # (Auto) 0.70 K/mcL (0.10-0.90); Monocytes % (Auto) 5.1 % (1.0-12.0); Neutrophils % (Auto) 80.6 % (38.0-78.0); Platelet Count 552 K/mcL (140-440); RBC 3.91 M/mcL (4.63-6.08); WBC 13.9 K/mcL (4.5-11.0)
[2025-05-31 14:25] LABS: Creatine Kinase 735 U/L (24-195)
[2025-05-31 14:26] LABS: ALT/SGPT 45 U/L (<40); AST/SGOT 54 U/L (<40); Albumin 3.5 gm/dL (3.2-5.2); Albumin/Globulin Ratio 0.7 (1.0-2.3); Alkaline Phosphatase 125 U/L (39-117); Anion Gap 17.0 (8.0-16.0); Bilirubin,Total 0.6 mg/dL (0.1-1.0); Blood Urea Nitrogen 46 mg/dL (8-23); Calcium 9.9 mg/dL (8.6-10.4); Carbon Dioxide 21 mmol/L (22-30); Chloride 102 mmol/L (96-108); Globulin 4.8 gm/dL (2.2-3.7); Glucose 108 mg/dL (70-105); Potassium 3.9 mmol/L (3.3-5.1); Sodium 140 mmol/L (133-145)
[2025-05-31] MEDS: cefTRIAXone 2 GM in DEXTROSE 5% IN WATER 50 ML IV ONE (14:31)
[2025-05-31 16:14] LABS: Bacteria,Urine Few /hpf (0); Bilirubin,Urine Negative (Negative); Color,Urine Yellow; Glucose,Urine (UA) Negative (Negative); Ketones,Urine Negative (Negative); Leukocyte Esterase,Urine Large /uL (Negative); PH,Urine 6.0 (5.0-9.0); Protein,Urine Trace mg/dL (Negative); Specific Gravity,Urine 1.015 (1.000-1.035); Urobilinogen,Urine Normal
[2025-05-31] MEDS: ACETAMINOPHEN 325 MG TABLET PO ONE (16:49)
[2025-05-31] MEDS: ACETAMINOPHEN 500 MG TABLET PO ONE (17:17)
[2025-05-31] MEDS ORDERED: ONDANSETRON 4 MG/2 ML VIAL IV PRN (19:27)
[2025-05-31] MEDS: LACTATED RINGERS 1,000 ML IV SCH (21:37)
[2025-05-31] MEDS: 0.9 % SODIUM CHLORIDE 10 ML SYRINGE IV SCH (21:38)
[2025-05-31] MEDS: SENNOSIDES 1 TABLET PO SCH (21:40)
[2025-05-31] MEDS: DOCUSATE SODIUM 100 MG CAPSULE PO SCH (21:40)
[2025-05-31] MEDS: HEPARIN 5,000 UNIT/ML VIAL SQ SCH (21:42)
[2025-05-31] MEDS: CEFEPIME 2 GM VIAL IV SCH (21:50)
[2025-05-31] MEDS: ACETAMINOPHEN 325 MG TABLET PO PRN (21:51)
[2025-06-01 06:26] LABS: Basophils # (Auto) 0.02 K/mcL (0.00-0.30); Basophils % (Auto) 0.1 % (0.0-2.0); Eosinophils # (Auto) 0.20 K/mcL (0.00-0.70); Eosinophils % (Auto) 1.4 % (0.0-7.0); Hematocrit 39.4 % (40.1-51.0); Hemoglobin 12.4 g/dL (13.7-17.5); Lymphocytes # (Auto) 1.56 K/mcL (1.50-4.80); Lymphocytes % (Auto) 10.9 % (15.5-49.0); Mean Corpuscular HGB Conc 31.5 g/dL (31.0-36.0); Monocytes # (Auto) 0.61 K/mcL (0.10-0.90); Monocytes % (Auto) 4.3 % (1.0-12.0); Neutrophils % (Auto) 82.9 % (38.0-78.0); Platelet Count 522 K/mcL (140-440); RBC 4.24 M/mcL (4.63-6.08); WBC 14.3 K/mcL (4.5-11.0)
[2025-06-01 06:38] LABS: ALT/SGPT 40 U/L (<40); AST/SGOT 42 U/L (<40); Albumin 3.3 gm/dL (3.2-5.2); Albumin/Globulin Ratio 0.7 (1.0-2.3); Alkaline Phosphatase 112 U/L (39-117); Anion Gap 13.0 (8.0-16.0); Bilirubin,Direct < 0.2 mg/dL (0-0.3); Bilirubin,Total 0.3 mg/dL (0.1-1.0); Blood Urea Nitrogen 36 mg/dL (8-23); Calcium 9.7 mg/dL (8.6-10.4); Carbon Dioxide 23 mmol/L (22-30); Chloride 104 mmol/L (96-108); Creatine Kinase 259 U/L (24-195); Globulin 4.5 gm/dL (2.2-3.7); Glucose 141 mg/dL (70-105); Phosphorous 3.0 mg/dL (2.5-4.5); Potassium 3.4 mmol/L (3.3-5.1); Sodium 140 mmol/L (133-145); Triglycerides 77 mg/dL (<150); Uric Acid 7.1 mg/dL (2.5-8.0)
[2025-06-01] MEDS: ALLOPURINOL 300 MG TABLET PO SCH (08:43)
[2025-06-01] MEDS: TERAZOSIN 5 MG CAPSULE PO SCH (08:43)
[2025-06-01 09:58] LABS: Barbiturate Screen,Urine None detected; Benzodiazepines Screen,Urine None detected; Fentanyl, Urine Screen None Detected; Opiate Screen,Urine None detected; Oxycodone, Urine Screen None detected; Phencyclidine Screen,Urine None detected
[2025-06-01] MEDS: AMITRIPTYLINE 25 MG TABLET PO SCH (20:02)
[2025-06-01] MEDS ORDERED: AMITRIPTYLINE 25 MG TABLET PO SCH (21:00)
[2025-06-02 08:33] LABS: Basophils # (Auto) 0.04 K/mcL (0.00-0.30); Basophils % (Auto) 0.4 % (0.0-2.0); Eosinophils # (Auto) 0.28 K/mcL (0.00-0.70); Eosinophils % (Auto) 2.9 % (0.0-7.0); Hematocrit 35.3 % (40.1-51.0); Hemoglobin 11.1 g/dL (13.7-17.5); Lymphocytes # (Auto) 2.22 K/mcL (1.50-4.80); Lymphocytes % (Auto) 23.3 % (15.5-49.0); Mean Corpuscular HGB Conc 31.4 g/dL (31.0-36.0); Monocytes # (Auto) 0.40 K/mcL (0.10-0.90); Monocytes % (Auto) 4.2 % (1.0-12.0); Neutrophils % (Auto) 68.7 % (38.0-78.0); Platelet Count 437 K/mcL (140-440); RBC 3.76 M/mcL (4.63-6.08); WBC 9.5 K/mcL (4.5-11.0)
[2025-06-02 08:57] LABS: RBC Morphology NORMAL (Normal)
[2025-06-02 09:15] LABS: ALT/SGPT 28 U/L (<40); AST/SGOT 24 U/L (<40); Albumin 3.0 gm/dL (3.2-5.2); Albumin/Globulin Ratio 0.7 (1.0-2.3); Alkaline Phosphatase 92 U/L (39-117); Anion Gap 11.0 (8.0-16.0); Bilirubin,Direct < 0.2 mg/dL (0-0.3); Bilirubin,Total 0.3 mg/dL (0.1-1.0); Blood Urea Nitrogen 24 mg/dL (8-23); Calcium 9.4 mg/dL (8.6-10.4); Carbon Dioxide 25 mmol/L (22-30); Chloride 108 mmol/L (96-108); Creatine Kinase 55 U/L (24-195); Globulin 4.1 gm/dL (2.2-3.7); Glucose 115 mg/dL (70-105); Phosphorous 3.5 mg/dL (2.5-4.5); Potassium 3.3 mmol/L (3.3-5.1); Sodium 144 mmol/L (133-145); Triglycerides 105 mg/dL (<150); Uric Acid 5.9 mg/dL (2.5-8.0)
[2025-06-03 13:51] VITALS: O2SAT 100
[2025-06-03 14:23] VITALS: TEMP 97
== END 2025-06-03 13:13 | DRG 71 ==
LOC: ED 12:18 → MEDSUR 18:53
PROVIDERS: ADMIT Internal Medicine; ATTEND Internal Medicine